=== PATIENT | male | born 1960 | race Hispanic/Latino ===

== ENCOUNTER 2018-09-11 20:12 | Inpatient (IN) | payer MEDICARE ==
[~2018-09-11] VITALS: Ht 157.5 cm; Wt 88.5 kg
[~2018-09-11 20:12] MED LIST: AMLO5TAB7 PO; CALC667T5 PO; DONE10TA43 PO; EPINEPHRINE 0.1 MG/ML 10 ML SYG IVP ONE; LISI-613 PO; LORA1TAB3 PO; MEMA5TAB PO; METO10TA3 PO; PANT40TA25 PO; PARO40TA72 PO; PRAV20TA4 PO; RISP1SOL10 PO; RISP1TAB89 PO; SEVE800T7 PO; SODIUM BICARB 8.4% 50ML SYRINGE IVP ONE; TRAM50TA4 PO
[2018-09-11 21:23] LABS: BASOPHILS % (AUTO) 0.3 % (0.0-5.0); HEMATOCRIT 36.1 % (42-54); MEAN CORPUSCULAR HEMOGLOBIN 31.1 pg (27.0-33.0); MEAN CORPUSCULAR HGB CONC 33.4 g/dL (32.0-36.0); MONOCYTES % (AUTO) 7.6 % (3.0-13.0); NEUTROPHILS % (AUTO) 85.1 % (40.0-77.0); PLATELET COUNT (AUTO) 91 K/uL (130-400); RED BLOOD CELL COUNT(AUTO) 3.88 MIL/uL (4.50-6.20); WHITE BLOOD COUNT (AUTO) 10.5 K/uL (4.8-10.8)
[2018-09-11 21:32] LABS: CREATININE 7.1 mg/dL (0.5-1.5); POTASSIUM 4.7 mmol/L (3.5-5.1)
[2018-09-11 21:54] LABS: ALBUMIN 3.4 g/dL (3.5-5.0); BILIRUBIN,TOTAL 0.4 mg/dL (0.2-1.0); TOTAL PROTEIN, SERUM 7.6 g/dL (6.0-8.3)
[2018-09-11 21:55] LABS: INR 1.37 (0.85-1.15); PARTIAL THROMBOPLASTIN TIME 27.9 SEC (26.3-35.5); PROTHROMBIN TIME 14.3 SEC (9.6-11.6)
[2018-09-11 21:57] LABS: TROPONIN I 1.21 ng/mL (0.00-0.06)
[2018-09-11] MEDS ORDERED: LEVOFLOXACIN 750 MG/D5W 150 ML 150 ML ONE (22:01)
[2018-09-11] MEDS ORDERED: VANCOMYCIN 1GM+NS 250ML 250 ML IV ONE (22:37)
[2018-09-11 22:39] LABS: ACETAMINOPHEN < 1 mcg/mL (10-29); SALICYLATE < 2.8 mg/dL (2.8-20.0)
[2018-09-11 22:39] LABS: APPEARANCE,URINE Clear (CLEAR); BILIRUBIN,URINE Negative (NEGATIVE); COLOR,URINE Yellow (YELLOW); GLUCOSE, URINE (UA) Negative (NEGATIVE); KETONES,URINE Trace mg/dL (NEGATIVE); LEUKOCYTE ESTERASE ,URINE Negative (NEGATIVE); NITRATE,URINE Negative (NEGATIVE); OCCULT BLOOD,URINE Negative (NEGATIVE); PH,URINE 5.5 (5.0-8.0); PROTEIN,URINE Negative (NEGATIVE)
[2018-09-11 22:42] LABS: ABG BASE EXCESS 0.7 mmol/L (-2.0-3.0); ABG HCO3 25.9 mmol/L (21.0-28.0); ABG OXYGEN SATURATION 99.7 % (95.0-99.0); ABG PCO2 44 mmHg (35-48)
[2018-09-11 22:44] LABS: AMPHET/METH SCREEN,URINE NEGATIVE (NEGATIVE); BARBITURATE SCREEN, URINE NEGATIVE (NEGATIVE); BENZODIAZEPINES SCREEN,URINE NEGATIVE (NEGATIVE); CANNABINOID SCREEN,URINE NEGATIVE (NEGATIVE); COCAINE SCREEN,URINE NEGATIVE (NEGATIVE); OPIATE SCREEN,URINE NEGATIVE (NEGATIVE); PHENCYCLIDINE SCREEN,URINE NEGATIVE (NEGATIVE)
[2018-09-11 23:35] VITALS: BP 156/120
[2018-09-11] MEDS ORDERED: VANCOMYCIN PROTOCOL PER PHARMACY IV SCH (23:45)
[2018-09-11] MEDS ORDERED: ACETAMINOPHEN 325 MG TAB PO PRN (23:45)
[2018-09-12] VITALS (22 sets, daily range): BP systolic 81–144; BP diastolic 40–98
[2018-09-12] MEDS ORDERED: LORA1TAB3 PO ×2 (00:30→09:28)
[2018-09-12] MEDS ORDERED: LORA10CA9 PO (00:30)
[2018-09-12] MEDS ORDERED: ASPI-555 PO ×2 (00:30→09:28)
[2018-09-12] MEDS ORDERED: IPRATROPIUM/ALBUTEROL SULFATE 3 ML SOLUTION IH PRN (02:15)
[2018-09-12 03:32] LABS: HEMATOCRIT 34.6 % (42-54); MEAN CORPUSCULAR HEMOGLOBIN 29.8 pg (27.0-33.0); MEAN CORPUSCULAR HGB CONC 32.3 g/dL (32.0-36.0); MEAN CORPUSCULAR VOLUME 92.3 fL (79-99); PLATELET COUNT (AUTO) 81 K/uL (130-400); RED BLOOD CELL COUNT(AUTO) 3.74 MIL/uL (4.50-6.20); WHITE BLOOD COUNT (AUTO) 8.7 K/uL (4.8-10.8)
[2018-09-12 04:01] LABS: CREATININE 7.4 mg/dL (0.5-1.5); POTASSIUM 4.5 mmol/L (3.5-5.1)
[2018-09-12 04:05] LABS: TROPONIN I 1.57 ng/mL (0.00-0.06)
[2018-09-12] MEDS ORDERED: DEXTROSE 50%-WATER 50 ML DISP.SYRIN IV ONE (06:06)
[2018-09-12] MEDS ORDERED: LACTATED RINGERS 1000ML 1,000 ML IV SCH (07:15)
[2018-09-12] MEDS ORDERED: DEXTROSE 50%-WATER 50 ML DISP.SYRIN IV PRN (07:45)
[2018-09-12] MEDS ORDERED: GLUCAGON 1MG KIT 1 MG ML IM PRN (07:45)
[2018-09-12] MEDS ORDERED: MIDODRINE HCL 5 MG TABLET PO SCH (08:00)
[2018-09-12] MEDS ORDERED: FAMOTIDINE/PF 20 MG/2 ML VIAL IV SCH (09:00)
[2018-09-12] MEDS ORDERED: RISP1TAB26 PO ×2 (09:28)
[2018-09-12] MEDS ORDERED: PRAV20TA4 PO (09:28)
[2018-09-12] MEDS ORDERED: PARO40TA72 PO (09:28)
[2018-09-12] MEDS ORDERED: AMLO5TAB7 PO (09:28)
[2018-09-12] MEDS ORDERED: PANT40TA25 PO (09:28)
[2018-09-12] MEDS ORDERED: CALC667T5 PO (09:28)
[2018-09-12] MEDS ORDERED: TRAM50TA4 PO (09:28)
[2018-09-12] MEDS ORDERED: LISI-613 PO (09:28)
[2018-09-12] MEDS ORDERED: LORA10TA7 PO (09:28)
[2018-09-12] MEDS: ALBUMIN (HUMAN) 25% 100 ML IV SCH ×2 (10:03→10:44)
[2018-09-12] MEDS ORDERED: LORAZEPAM 1 MG TABLET PO PRN (10:45)
[2018-09-12 11:36] LABS: TROPONIN I 1.74 ng/mL (0.00-0.06)
[2018-09-12] MEDS ORDERED: CALCIUM ACETATE 667 MG CAPSULE PO SCH (12:00)
[2018-09-12 13:35] LABS: ABG BASE EXCESS 2.3 mmol/L (-2.0-3.0); ABG HCO3 28.6 mmol/L (21.0-28.0); ABG OXYGEN SATURATION 88.9 % (95.0-99.0); ABG PCO2 52 mmHg (35-48)
[2018-09-12] MEDS ORDERED: RISPERIDONE 1 MG TABLET PO SCH (21:00)
[2018-09-13] MEDS ORDERED: LORATADINE 10 MG TABLET PO SCH (09:00)
[2018-09-13] MEDS ORDERED: PAROXETINE HCL 20 MG TABLET PO SCH (09:00)
[2018-09-13] MEDS ORDERED: PANTOPRAZOLE SODIUM 40 MG TABLET.DR PO SCH (09:00)
[2018-09-13] MEDS ORDERED: ASPIRIN 81 MG EC TAB PO SCH (09:00)
[2018-09-13] MEDS ORDERED: LEVOFLOXACIN 500 MG/D5W 100 ML 100 ML IV SCH (22:00)
== END 2018-09-12 13:55 | disposition expired | DRG 208 ==
LOC: EDH 20:12 → EDHIP 22:39 → 2CH 23:36
PROVIDERS: ADMIT Internal Medicine Nephrology; ATTEND Internal Medicine Nephrology
PROC: 5A1935Z Respiratory Ventilation, Less than 24 Consecutive Hours (ICD-10-PCS; principal; 2018-09-12)
PROC: 0BH18EZ Insertion of Endotracheal Airway into Trachea, Via Natural or Artificial Opening Endoscopic (ICD-10-PCS; 2018-09-12)
DX: I26.99 Other pulmonary embolism without acute cor pulmonale (principal); N18.6 End stage renal disease; I12.0 Hypertensive chronic kidney disease with stage 5 chronic kidney disease or end stage renal disease; I47.2 Ventricular tachycardia; H54.8 Legal blindness, as defined in USA; E11.40 Type 2 diabetes mellitus with diabetic neuropathy, unspecified; E11.319 Type 2 diabetes mellitus with unspecified diabetic retinopathy without macular edema; E11.22 Type 2 diabetes mellitus with diabetic chronic kidney disease; E11.21 Type 2 diabetes mellitus with diabetic nephropathy; I46.9 Cardiac arrest, cause unspecified; I49.01 Ventricular fibrillation; R09.02 Hypoxemia; F41.9 Anxiety disorder, unspecified; F32.9 Major depressive disorder, single episode, unspecified; F03.90 Unspecified dementia, unspecified severity, without behavioral disturbance, psychotic disturbance, mood disturbance, and anxiety; E78.5 Hyperlipidemia, unspecified; Z79.899 Other long term (current) drug therapy; Z99.2 Dependence on renal dialysis; Z88.8 Allergy status to other drugs, medicaments and biological substances
CPT/HCPCS: 31500; 36415; 36600; 71045; 76705; 80048; 80053; 80305; 80339; 81003; 82435; 82550; 82803; 82947; 82948; 83605; 83874; 84132; 84295; 84484; 85018; 85025; 85027; 85610; 85730; 87040; 87088; 92950; 93005; 93926; 94660; 94664; 99291; G0480; G0481; J0171; J1956; J3370; J3490; J7070; P9046